=== PATIENT | female | born 1945 | race Caucasian/White ===

== ENCOUNTER → 2016-06-20 | Outpatient (CLI) | payer OTHER | LOC: FIMAGING 08:25 | DX: Z12.31 Encounter for screening mammogram for malignant neoplasm of breast (principal) | CPT/HCPCS: G0202 ==

== ENCOUNTER → 2017-03-03 | Outpatient (CLI) | payer OTHER ==
[~2017-03-03] MED LIST: IOPAMIDOL (ISOVUE-300) 100 ML BTL ONE
== END ==
LOC: FIMAGING 07:55
PROVIDERS: ATTEND Physician Assistant
DX: K57.30 Diverticulosis of large intestine without perforation or abscess without bleeding (principal); D73.89 Other diseases of spleen; K44.9 Diaphragmatic hernia without obstruction or gangrene; M51.36 Other intervertebral disc degeneration, lumbar region; M46.96 Unspecified inflammatory spondylopathy, lumbar region
CPT/HCPCS: 74177; Q9967

== ENCOUNTER → 2017-06-22 | Outpatient (CLI) | payer OTHER | LOC: BMCIMAGING 08:47 | PROVIDERS: ATTEND Internal Medicine | DX: Z12.31 Encounter for screening mammogram for malignant neoplasm of breast (principal); Z80.3 Family history of malignant neoplasm of breast ==

== ENCOUNTER → 2018-05-28 | Outpatient (CLI) | payer OTHER ==
[~2018-05-28] MED LIST changes: +IOHEXOL 300 mgI/ML (OMNIPAQUE) 150 ML BTL IV ONE; -IOPAMIDOL (ISOVUE-300) 100 ML BTL ONE
== END ==
LOC: FIMAGING 13:59
PROVIDERS: ATTEND Physical Medicine & Rehabilitation
DX: R19.7 Diarrhea, unspecified (principal); R63.4 Abnormal weight loss
CPT/HCPCS: 74177; Q9967

== ENCOUNTER 2018-06-28 06:05 | Inpatient (IN) | payer OTHER ==
[2018-06-28] MEDS ORDERED: MIDAZOLAM 2 MG/2 ML VIAL IVP ONE (06:57)
--- NOTE | 2018-06-28 06:57 | PDANEPAE ---
ANE Past Medical History - Cardiovascular History Hx Hypertension: No Hx Arrhythmias: No Hx Chest Pain: No Hx Coronary Artery / Peripheral Vascular Disease: No Hx CHF / Valvular Disease: No Hx Palpitations: No - Pulmonary History Hx COPD: No Hx Asthma/Reactive Airway Disease: No Hx Recent Upper Respiratory Infection: No Hx Oxygen in Use at Home: No Hx Sleep Apnea: No Sleep Apnea Screening Result - Last Documented: Negative Pulmonary History Comment: USES VAPROIZER FOR MMJ. PNEUMONIA X 2 07/2013 - Neurologic History Hx Cerebrovascular Accident: No Hx Seizures: No Hx Dementia: No - Endocrine History Hx Diabetes: No - Renal History Hx Renal Disorders: Yes Renal History Comment: REMOTE UTI. 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 SKIN LICHEN SCLEROSIS/ITCHING - Chronic Pain History Chronic Pain: Yes (GI) - Surgical History Prior Surgeries: EXC BARTHOLIN GLAND 05/11/17. YISEL TOTAL KNEE. YISEL KNEE SCOPE. LT KNEE BONE GRAFT. CERVICAL FUSION 4-5-6. RT ORBITAL FX. OVARIAN CYST. REMVL TRE. TONSILLECTOMY ANE Review of Systems Review of Systems: - Exercise capacity METS (RN): 5 METS ANE Patient History - Allergies Allergies/Adverse Reactions: clindamycin Allergy (Verified 06/15/18 15:35) COLITIS metronidazole Allergy (Verified 06/15/18 15:35) PSYCHOSIS nitrofurantoin Allergy (Verified 06/15/18 15:36) NAUSEA AND ITCHING Penicillins Allergy (Verified 06/15/18 15:33) NECK SWELLING/RASH Sulfa (Sulfonamide Antibiotics) Allergy (Verified 06/15/18 15:33) ORAL SORE/CHEEK SWELLING - Home Medications Home Medications: Diazepam [Valium 10 MG (RX)] 10 mg PO DAILY PRN 07/29/13 [Last Taken Unknown] Acyclovir [Zovirax 400 mg (RX)] 400 mg PO DAILY PRN 07/30/13 [Last Taken Unknown ] Carisoprodol [Soma (RX)] 350 mg PO DAILY PRN 07/30/13 [Last Taken Unknown] Acetaminophen [Tylenol 325mg (*)] 325 mg PO Q6 PRN 06/08/18 [Last Taken Unknown] Clobetasol Propionate [Temovate] 1 tatiana TP DAILY PRN 06/08/18 [Last Taken Unknown ] Estradiol [Estrace Vaginal (*)] 1 tatiana VG DAILY PRN 06/08/18 [Last Taken Unknown] Herbals/Supplements -Info Only 1 ea PO DAILY 06/08/18 [Last Taken Unknown] Ibuprofen [Motrin (*)] 200 mg PO TID PRN 06/08/18 [Last Taken Unknown] - Smoking Hx Smoking Status: Current some day smoker ANE Labs/Vital Signs - Vital Signs Height: 170.18 cm Weight: 53.524 kg ANE Physical Exam - Airway Mallampati Score: Class 1 - ASA Status ASA Status: II ANE Anesthesia Plan Anesthesia Plan: general endotracheal anesthesia
[2018-06-28] MEDS ORDERED: cefOXitin SODIUM 2 GM in NS 100 ML IV ONE (07:12)
[2018-06-28] MEDS ORDERED: fentaNYL 100 MCG/2 ML INJ ONE (07:12)
[2018-06-28] MEDS ORDERED: PROPOFOL 200 MG/20 ML VIAL ONE (07:13)
[2018-06-28] MEDS ORDERED: ONDANSETRON 4 MG/2 ML VIAL ONE (07:15)
[2018-06-28] MEDS ORDERED: ROCURONIUM 50 MG/5 ML VIAL ONE (07:16)
[2018-06-28] MEDS ORDERED: METOCLOPRAMIDE 10 MG/2 ML VIAL ONE (07:16)
--- NOTE | 2018-06-28 07:23 | PDHPUP ---
History & Physical Update H&P update statement: This history and physical update is based on an assessment of the patient which was completed after admission or registration (within 24 hours), but prior to the surgery/procedure. H&P update: H&P reviewed & patient examined, no change in patient's condition since H&P completed
[2018-06-28] MEDS ORDERED: BUPIVACAINE 0.5% 30 ML SDV ONE (07:35)
[2018-06-28] MEDS ORDERED: PHENYLEPHRINE HCL 100 MCG/ML SYR ONE (07:49)
[2018-06-28] MEDS ORDERED: INDOCYANINE GREEN 25 MG VIAL ONE (08:34)
[2018-06-28] MEDS ORDERED: fentaNYL 100 MCG/2 ML INJ IVP PRN (10:38)
[2018-06-28] MEDS ORDERED: NALOXONE HCL 0.4 MG/ML INJ IVP PRN (10:38)
[2018-06-28] MEDS ORDERED: LR 500 ML IV PRN (10:38)
[2018-06-28] MEDS ORDERED: ONDANSETRON 4 MG/2 ML VIAL IVP PRN ×2 (10:38→10:41)
[2018-06-28] MEDS ORDERED: HYDROmorphONE/DILAUDID 2 MG/ML INJ IVP PRN (10:38)
--- NOTE | 2018-06-28 10:39 | POSTANESTH ---
Post Anesthetic Evaluation Cardiovascular Status: Normal, Stable Respiratory Status: Normal, Stable Level of Consciousness/Mental Status: Can Participate in Eval Pain Control: Adequate, Prn Tx Ordered Nausea/Vomiting Control: Adequate, Prn Tx Ordered Complications Possibly Related to Anesthesia: None Noted
--- NOTE | 2018-06-28 10:40 | POSTOPPROG ---
Post Op Note Date of Operation: 06/28/18 Surgeon: Oliver Valenzuela Inspector Missile: Dr. Bach Anesthesiologist: Dr. Tripp Anesthesia: GET(General Endotracheal) Pre-op Diagnosis: Diverticulitis Post-op Diagnosis: same Procedure: Robotic sigmoidectomy Inf/Abcess present in the surg proc area at time of surgery?: No EBL: Minimal
[2018-06-28] MEDS ORDERED: HYDROmorphONE/DILAUDID 2 MG/ML INJ ONE (11:21)
[2018-06-28] MEDS ORDERED: LR 1,000 ML IV ONE (11:33)
[2018-06-28] MEDS ORDERED: KETOROLAC 15 MG/1 ML SDV IVP ONE (11:47)
[2018-06-28] MEDS ORDERED: KETOROLAC 15 MG/1 ML SDV ONE (12:00)
--- NOTE | 2018-06-28 13:16 | PDMN ---
Medical Necessity Medical necessity: Pt meets inpt criteria per MD order and [facility] [place] S-[id number], Bowel Surgery: Colectomy, Partial, with or without Ostomy, by Laparoscopy, INPT only list, 3 days. 73 y/o w/diverticulitis admitted for sigmoidectomy and post- op care.
[2018-06-28] MEDS: cefOXitin SODIUM 1 GM in NS 50 ML IV SCH ×2 (13:45→21:09)
--- NOTE | 2018-06-28 19:19 | GOP ---
[f rep st] OPERATIVE REPORT DATE OF OPERATION: 06/28/2018 SURGEON: Jerrod Valenzuela MD TREATING MACHINE OPERATOR: Dr. Bach, whose presence was requested by me and medically necessary for the safe and timely conclusion of the patient's case. ANESTHESIA: General endotracheal anesthesia. ANESTHESIOLOGIST: Dr. Tripp PREOPERATIVE DIAGNOSIS: Diverticulitis. POSTOPERATIVE DIAGNOSIS: Diagnose same. PROCEDURE PERFORMED: Robotic low anterior resection. FINDINGS: The patient had mild inflammation of the distal sigmoid colon, proximal rectum. The patient had a moderately redundant sigmoid colon. There were some small adhesions in the pelvis. No other lesions were identified. ESTIMATED BLOOD LOSS: 20 cc. INDICATIONS: 73-year-old female with a history of diverticulitis. Risks and benefits of procedure were discussed with patient and family, their questions were answered, and she wished to proceed. DESCRIPTION OF PROCEDURE: The patient was in the supine position initially. After the induction of general endotracheal anesthesia, the patient was moved to the modified lithotomy position and then prepped and draped in the standard surgical fashion. 0.5% marcaine was injected near the umbilicus and an 8mm incision made. The abdominal wall was elevated and a Veress needle inserted. After noting proper pressures, the abdomen was insufflated with carbon dioxide. An 8mm trocar was placed and the camera followed. There was no apparent damage from trocar placement. 2 more 8mm ports, one 15mm port and one 5mm port were then placed under direct vision. The robot was docked and dissection commenced. [id number] approach was used; the inferior mesenteric vessels were easily identified and taken with the vessel sealer. The ureter on both sides were seen and preserved throughout the case. The sigmoid colon was markedly redundant and had slight adhesions to the uterus which were taken down with scissors. The dissection was taken past the extent of the inflammation, seen to the mid-rectum. The white line of Toldt was mobilized using cautery. Points of transection were determined and the mesentery transected with the vessel sealer to those points. An intracorporeal anastomosis was performed. After using firefly to ensure vascular integrity, the proximal and distal sites were transected with a blue load of the stapler. The rectal staple line was then excised and the colon and stapled segment passed transanally. This went without difficulty and with minimal stretching. Once specimen was passed, a second firing of the rectal stump was performed with the Endo-IRVIN stapler using a blue load. Prior to stapling this, the anvil for the 29 EEA had been passed transanally as well. Attention was then turned to the proximal segment. The staple line for the proximal segment was transected using scissors. The anvil for the EEA was passed into the proximal portion of the resection and a pursestring suture of 3- 0 Vicryl was applied. The colon was then dropped into the pelvis and found to be without twisting or tension. The 29 EEA stapler was then advanced through the rectum and the spike extended. It was mated with the anvil and the anastomosis was performed. Two intact donuts were withdrawn. Leak test was performed by instilling the pelvis with saline and submerging the staple line. The proximal colon was occluded and the rectum insufflated with air transanally. This demonstrated no leak after multiple applications. The abdomen was then thoroughly irrigated and aspirated. Good hemostasis was noted. The robot was undocked and the trocars removed. The fascia at the 15mm port was closed with O vicryl. The wounds were thoroughly irrigated and closed with 4-O monocryl. They were dressed with dermabond. The patient was then returned to the supine position and extubated. She was taken to the post anesthesia care unit in stable condition. COMPLICATIONS: None. DRAINS: None. /[id number]/MODL MTDD
[2018-06-29] MEDS: HYDROmorphONE/DILAUDID 1 MG/ML INJ IVP PRN ×3 (01:21→15:15)
[2018-06-29] MEDS: cefOXitin SODIUM 1 GM in NS 50 ML IV SCH ×2 (03:05→07:32)
--- NOTE | 2018-06-29 10:00 | ASMTCMCOM ---
CM Note CM Note Notes: Pts case discussed w/ HENOK Ferrari. Pt is a 73 y/o female admitted for abdominal pain. Pt underwent surgery w/ Dr. Valenzuela. Pt will most likely d/c independent without any needs. No therapies ordered at this time. CM available for changes. Plan: Independent Date Signed: 06/29/2018 09:59 AM Electronically Signed By:ALBERT Colón
[2018-06-29] MEDS ORDERED: ACYCLOVIR 400 MG TAB PO PRN (10:01)
[2018-06-29] MEDS ORDERED: CLOBETASOL 0.05% 15 GM OINT TUBE TP PRN (10:01)
[2018-06-29] MEDS ORDERED: ESTRADIOL 42.5 GM CRTUBE VG PRN (10:01)
[2018-06-29] MEDS ORDERED: DIAZEPAM 10 MG TAB PO PRN (10:01)
--- NOTE | 2018-06-29 10:15 | SOAPPROG ---
SOAP Progress Note Assessment/Plan: Assessment: s/p robotic LAR, stable to improving. Cont clears for now, ambulate, IS. Plan: 06/29/18 10:14 Subjective: Patient feels better, still some abd pain. No N/V, cathi po. Objective: Vital Signs Temp Pulse Resp BP Pulse Ox 37.2 C 71 16 95/50 L 92 06/29/18 07:25 06/29/18 07:25 06/29/18 07:25 06/29/18 07:25 06/29/18 07:25 Laboratory Results 06/29/18 04:28 06/29/18 04:28 06/28/18 06/29/18 06/30/18 05:59 05:59 05:59 Intake Total 1300 Output Total 260 Balance 1040 Alert, NAD RRR Abd soft, inc TTP Inc C/D/I ICD10 Worksheet Patient Problems: Problems Problem Status Onset Pneumonia Acute
[2018-06-29] MEDS: HYDROmorphONE/DILAUDID 2 MG TAB PO PRN (22:16)
[2018-06-30] MEDS: HYDROmorphONE/DILAUDID 2 MG TAB PO PRN ×3 (06:52→20:53)
--- NOTE | 2018-06-30 10:15 | SOAPPROG ---
SOAP Progress Note Assessment/Plan: Assessment: s/p robotic LAR, stable to improving. Reg diet, transition to po pain meds. Plan: 06/29/18 10:14 06/30/18 10:13 Subjective: Patient feels better, cathi po, no N/V. Ambulating, voiding. + BM, no blood. Objective: Vital Signs Temp Pulse Resp BP Pulse Ox 36.9 C 65 16 108/60 94 06/30/18 08:23 06/30/18 08:23 06/30/18 08:23 06/30/18 08:23 06/30/18 08:23 Laboratory Results 06/29/18 04:28 06/29/18 04:28 06/29/18 06/30/18 07/01/18 05:59 05:59 05:59 Intake Total 1300 Output Total 260 Balance 1040 Alert, NAD RRR Abd soft, NTTP Inc C/D/I ICD10 Worksheet Patient Problems: Problems Problem Status Onset Pneumonia Acute
[2018-06-30] MEDS ORDERED: DIAZEPAM 5 MG TAB PO PRN (13:00)
[2018-07-01] MEDS: HYDROmorphONE/DILAUDID 2 MG TAB PO PRN (04:42)
[2018-07-01 07:38] VITALS: BP 100/54
--- NOTE | 2018-07-01 09:25 | SOAPPROG ---
SOAP Progress Note Assessment/Plan: Assessment: s/p robotic LAR, improved. D/c home. Plan: 06/29/18 10:14 06/30/18 10:13 07/01/18 09:24 Subjective: Patient without complaints, cathi po, bowels functioning. Objective: Vital Signs Temp Pulse Resp BP Pulse Ox 36.6 C 62 16 100/54 L 91 L 07/01/18 07:36 07/01/18 07:36 07/01/18 07:36 07/01/18 07:36 07/01/18 07:36 Laboratory Results 06/29/18 04:28 06/29/18 04:28 Alert, NAD RRR Abd soft, NTTP Inc C/D/I ICD10 Worksheet Patient Problems: Problems Problem Status Onset Pneumonia Acute
== END 2018-07-01 11:00 | disposition home or self-care (01) | DRG 331 ==
LOC: F3E 06:05
PROVIDERS: ADMIT Surgery; ATTEND Surgery
DX: K57.32 Diverticulitis of large intestine without perforation or abscess without bleeding (principal); Z98.1 Arthrodesis status; Z96.651 Presence of right artificial knee joint
CPT/HCPCS: J0694; J1170; J1885; J2250; J2370; J2405; J2704; J2765; J3010